=== PATIENT | female | born 1940 ===

== ENCOUNTER 2017-02-15 11:50 | Emergency (ER) | payer OTHER ==
--- NOTE | 2017-02-15 13:11 | ED PDOC ---
HPI: Eye Injury/Pain Time Seen by Provider: 02/15/17 12:09 Chief Complaint (Nursing): Eye Problem Chief Complaint (Provider): right eye redness History Per: Patient History/Exam Limitations: no limitations Onset/Duration Of Symptoms: Days (x2 weeks) Current Symptoms Are (Timing): Still Present Injury To Eye?: No Severity: Mild Wears Contact Lens?: No Associated Symptoms: denies: Pain, Decreased Vision Additional Complaint(s): Patient is a 76 year old female presenting to the ED complaining of redness to the right eye x2 weeks. Redness is associated with tearing and inability to move eye laterally. Patient reports pain surrounding the eye, but no pain to the eye. Denies visual changes, headache, weakness, numbness, vomiting, or contact lens use. Of note: Patient had an unspecified surgery on her right eye. PMD: Yamileth Taylor Past Medical History Reviewed: Historical Data, Nursing Documentation, Vital Signs Vital Signs: Last Vital Signs Temp 97.5 F L 02/15/17 12:05 Pulse 77 02/15/17 12:05 Resp 18 02/15/17 12:05 BP 149/76 02/15/17 12:05 Pulse Ox 96 02/15/17 12:05 - Medical History PMH: Arthritis, CAD, HTN, Hypercholesterolemia, Hypothyroidism - Family History Family History: States: No Known Family Hx - Allergies Allergies/Adverse Reactions: Allergies Allergy/AdvReac Type Severity Reaction Status Date / Time No Known Allergies Allergy Verified 02/15/17 12:38 Review of Systems ROS Statement: Except As Marked, All Systems Reviewed And Found Negative Constitutional: Negative for: Fever Eyes: Positive for: Redness. Negative for: Pain, Vision Change Gastrointestinal: Negative for: Vomiting Neurological: Negative for: Weakness, Numbness, Headache Physical Exam - Reviewed Nursing Documentation Reviewed: Yes Vital Signs Reviewed: Yes - Physical Exam Appears: Positive for: Well, Non-toxic, No Acute Distress Head Exam: Positive for: ATRAUMATIC, NORMAL INSPECTION, NORMOCEPHALIC Skin: Positive for: Normal Color, Warm, DRY Eye Exam: Positive for: PERRL, Conjunctival injection (right). Negative for: EOMI (+eOMI not intact- upward and downward gaze intact -lateral and medial gaze not intact) Cardiovascular/Chest: Positive for: Regular Rate, Rhythm. Negative for: Gallop , Murmur Respiratory: Positive for: Normal Breath Sounds. Negative for: Accessory Muscle Use, Rhonchi, Respiratory Distress Extremity: Positive for: Normal ROM Neurologic/Psych: Positive for: Alert, Oriented - Laboratory Results Result Diagrams: 02/15/17 13:04 02/15/17 13:04 - ECG O2 Sat by Pulse Oximetry: 96 (RA) Pulse Ox Interpretation: Normal - Progress ED Course And Treament: CTA head: IMPRESSION: Mkopvn-ca-[id number] enlarged right superior ophthalmic vein noted of uncertain etiology. Prominent veins seen adjacent to the right cavernous sinus. The possibility of acute pathology at the right cavernous sinus such as thrombosis or carotid cavernous fistula should be excluded. Moderate diffuse atherosclerotic disease without CTA evidence of occlusion or significant stenosis. Mild mucosal thickening in the left sphenoid sinus. CT orbits: IMPRESSION: Asymmetrical enlargement of the right superior ophthalmic vein noted. Otherwise no CT evidence of acute pathology in the orbits. Asymmetrical enlargement of the right cavernous sinus noted. MRI brain: 1. There is right proptosis. There is asymmetric enlargement of the right ophthalmic vein measuring 4-5 mm in diameter. 2. 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 Conventional angiography is recommended. 3. There is irregularity of the distal vertebral arteries, consistent with atherosclerosis. Mild stenoses are visualized of the distal vertebral arteries. 4. There are stenoses of the bilateral cavernous internal carotid arteries. The degree of stenosis of the cavernous right internal carotid artery is approximately 65%. There is approximately 50% stenosis of the cavernous left internal carotid artery. 5. Mild stenosis is visualized of the proximal basilar artery. The degree of stenosis is approximately 50%. Dr. Stubbs discussed case with Dr. Perales who recommends speaking with a vascular neurosurgeon from [facility] and states this does not need emergent intervention. Call placed to [facility] transfer center. Case d/w Dr. Bruce, neurosurgeon, who recommends f/u transfer to [place] [facility] and Dr. Constantino Pressley will be accepting physician Case d/w Ciera LENZ. MRI and CT results transferred with patient. Plan and results discussed in detail with patient and patient's son Mehdi and agree with plan. Consent for transfer signed. Medical Decision Making Medical Decision Making: Time: 12:10 Impression: 76 y/o female without EOMI intact Plan: CT Angio Head CT Orbits/Facials CMP CBC Scribe Attestation: Documented by Lasha Allison acting as a scribe for NADINE Jenkins MD Scribe Attestation: All medical record entries made by the Scribe were at my direction and personally dictated by me. I have reviewed the chart and agree that the record accurately reflects my personal performance of the history, physical exam, medical decision making, and the department course for this patient. I have also personally directed, reviewed, and agree with the discharge instructions and disposition Disposition - Clinical Impression Clinical Impression: External ophthalmoplegia - Patient ED Disposition Is Patient to be Admitted: Transfer of Care - Disposition Disposition: Other Institution ([place]) Disposition Time: 21:32 Condition: STABLE
[2017-02-15 13:26] LABS: ALB/GLOB RATIO 1.2 (1.0-2.1); ALKALINE PHOSPHATASE 118 U/L (38-126); ALT/SGPT 28 U/L (9-52); AST/SGOT 37 U/L (14-36); BILIRUBIN,TOTAL 0.5 mg/dl (0.2-1.3); BLOOD UREA NITROGEN 22 mg/dl (7-17); CALCIUM 9.4 mg/dL (8.4-10.2); CARBON DIOXIDE 27 mmol/L (22-30); CHLORIDE 103 mmol/L (98-107); GFR AFRICAN-AMERICAN > 60; GLUCOSE,RANDOM 129 mg/dL (65-105); POTASSIUM 4.4 MMOL/L (3.6-5.0); SODIUM 146 mmol/l (132-148); TOTAL PROTEIN 8.2 G/DL (6.3-8.2)
[2017-02-15 13:37] LABS: BASO % 0.3 % (0.0-2.0); EOS # 0.1 K/uL (0.0-0.7); EOS % 0.9 % (0.0-4.0); LYMPH # 2.8 K/uL (1.0-4.3); LYMPH % 28.3 % (20.0-40.0); MEAN CELL VOLUME 87.6 fl (81.0-99.0); MEAN CORPUSCULAR HEMOGLOBIN 29.1 pg (27.0-31.0); MEAN CORPUSCULAR HGB CONC 33.2 g/dL (33.0-37.0); MEAN PLATELET VOLUME 7.6 fl (7.2-11.7); MONO # 0.8 K/uL (0.0-0.8); MONO % 7.8 % (0.0-10.0); NEUT # 6.1 K/uL (1.8-7.0); NEUT % 62.7 % (50.0-75.0); NRBC % 0.1 % (0.0-0.0); RED CELL DISTRIBUTION WIDTH 12.6 % (11.5-14.5); WHITE BLOOD COUNT 9.8 K/uL (4.8-10.8)
[2017-02-15] MEDS ORDERED: Iodixanol 320 MG/ML 100 ML BOTTLE IV ONE (14:01)
[2017-02-15] MEDS ORDERED: Sodium Chloride 0.9% 50 ML IV ONE (14:01)
--- NOTE | 2017-02-15 16:05 | CT ---
PROCEDURE: CT Angiography of the Brain. HISTORY: R eye limited EOM COMPARISON: None available. TECHNIQUE: CT angiography of the intracranial arteries was performed. Coronal and sagittal maximum intensity projection reformated images were generated. This CT exam was performed using one or more of the following dose reduction techniques: Automated exposure control, adjustment of the mA and/or kV according to patient size, and/or use of iterative reconstruction technique. FINDINGS: INTERNAL CEREBRAL ARTERIES: Foci of atherosclerotic calcifications seen at the distal portion of both internal carotid arteries. . The skull base, petrous, cavernous and supraclinoid segments are bilaterally widely patient. ANTERIOR CEREBRAL ARTERIES: Unremarkable. A1 and A2 segments are widely patent. Smaller distal branches unremarkable, as visualized. MIDDLE CEREBRAL ARTERIES: Mild diffuse irregularity and foci of calcification at the proximal portion of both middle cerebral arteries noted suggestive of moderate atherosclerotic disease. . M1 and M2 segments are widely patent. Perisylvian branches grossly symmetric. POSTERIOR CIRCULATION: Basilar Artery: Unremarkable. Distal Vertebral Arteries: Atherosclerotic disease is also noted in the distal vertebral arteries right more than left. The distal right vertebral artery is smaller than the left. Posterior Cerebral Arteries: Unremarkable. Posterior Inferior Cerebellar Arteries: Unremarkable. ANEURYSM/ VASCULAR MALFORMATIONS: No evidence of sizable aneurysm OTHER FINDINGS: There is mild to moderate enlargement of the right superior oval thymic vein noted. There are prominent veins at the medial aspect of the right posterior fossa and adjacent to the right cavernous sinus noted. IMPRESSION: Qgquqc-[id number] enlarged right superior ophthalmic vein noted of uncertain etiology. Prominent veins seen adjacent to the right cavernous sinus. The possibility of acute pathology at the right cavernous sinus such as thrombosis or carotid cavernous fistula should be excluded. Moderate diffuse atherosclerotic disease without CTA evidence of occlusion or significant stenosis. Mild mucosal thickening in the left sphenoid sinus.
--- NOTE | 2017-02-15 16:20 | CT ---
PROCEDURE: CT ORBITS WITH CONTRAST. HISTORY: R eye limited EMO COMPARISON: None available. TECHNIQUE: Following administration of intravenous iodinated contrast, axial CT images of the orbits were obtained. Coronal and sagittal reformats were generated. Intravenous contrast dose: 95 mL of Visipaque 320 (was injected for CTA of the head and CT of the orbits) Radiation dose: Total exam DLP = 713.09 mGy-cm. This CT exam was performed using one or more of the following dose reduction techniques: Automated exposure control, adjustment of the mA and/or kV according to patient size, and/or use of iterative reconstruction technique. FINDINGS: RIGHT ORBIT: RIGHT BONY ORBIT: Normal. RIGHT INTRAORBITAL STRUCTURES: Globe: Normal. Extraocular muscles: Normal. Post septal space: There is a asymmetrical enlargement of the right superior ophthalmic vein compared to the left. Optic Nerve: Normal. Lacrimal Apparatus: Normal. RIGHT PRESEPTAL SOFT TISSUES: Normal. LEFT ORBIT: LEFT BONY ORBIT: Normal. LEFT INTRAORBITAL STRUCTURES: Globe: Normal. Extraocular muscles: Normal. Post septal space: Normal. Optic Nerve: Normal. Lacrimal Apparatus: Normal. LEFT PRESEPTAL SOFT TISSUES: Normal. OTHER: Suspicious for enlargement of the right cavernous sinus versus enlargement of adjacent collateral veins. IMPRESSION: Asymmetrical enlargement of the right superior ophthalmic vein noted. Otherwise no CT evidence of acute pathology in the orbits. Asymmetrical enlargement of the right cavernous sinus noted. Further assessment may be obtained by enhanced MRI if there is no contraindication .
[2017-02-15] MEDS ORDERED: Gadodiamide 287 MG/ML VIAL (15ML) IV ONE (16:48)
[2017-02-15 21:40] VITALS: TEMP 98.3
[2017-02-15 22:39] VITALS: BP 152/82; PULSE 74; RESP 16; O2SAT 99
--- NOTE | 2017-02-16 14:02 | MRI ---
PROCEDURE: MRI BRAIN WITH AND WITHOUT CONTRAST HISTORY: enlarged ophthalmic vein COMPARISON: Comparison is made to the previous CT of the head dated 07/12/2013 CT angiogram of the head and CT of the orbits dated 02/15/2017. TECHNIQUE: Multiplanar, multisequence MR images of the brain were obtained with and without intravenous contrast enhancement. FINDINGS: HEMORRHAGE: None DWI: No evidence of an acute or early subacute infarction. BRAIN PARENCHYMA: No mass,mass effect or edema. Mild atrophy is noted. Moderate periventricular and subcortical white matter changes are also noted suggestive but nonspecific for chronic microvascular ischemic disease. There is asymmetrical enlargement of the right cavernous sinus comparing to the left. There are collateral veins seen adjacent to the right cavernous sinus. ENHANCEMENT: No abnormal intracranial enhancement. VENTRICLES: Unremarkable. No hydrocephalus. CRANIUM: Unremarkable. ORBITS: No evidence of mass lesion in the visualized portion of the orbits. Again seen is enlargement of the right superior over thymic vein. Mild right proptosis noted. PARANASAL SINUSES/MASTOIDS: Mild sinuses mucosal thickening is noted. VASCULAR SYSTEM: Skull base flow voids intact. OTHER FINDINGS: None . IMPRESSION: Asymmetrical enlargement of the right cavernous sinus compared to the left. . Collateral veins seen adjacent to the right cavernous sinus. [id number] enlargement of the right superior ophthalmic vein. The possibility of acute/ subacute pathology at the right cavernous sinus such as carotid cavernous fistula should be considered. Mild atrophy. Moderate white matter changes suggestive but nonspecific for chronic microvascular ischemic disease. Mild right proptosis. Preliminary report was submitted by [facility] contains concordant findings.
--- NOTE | 2017-02-16 14:10 | MRI ---
PROCEDURE: Magnetic Resonance Angiography Brain HISTORY: enlarged ophthalmic vein COMPARISON: Comparison is made to the previous CTA of the head dated 02/15/2017 TECHNIQUE: 3D time of flight MR angiography of the intracranial arteries was performed. Rotating maximum intensity projection images were generated. FINDINGS: INTERNAL CEREBRAL ARTERIES: Diffuse irregularity in the distal internal carotid arteries suggestive of moderate atherosclerotic disease. There is tshf-oh-[id number] approximately 65 percent stenosis at the cavernous right internal carotid artery and approximately 50 percent stenosis at the cavernous left carotid artery. ANTERIOR CEREBRAL ARTERIES: Unremarkable. A1 and A2 segments are widely patent. Smaller distal branches unremarkable, as visualized. MIDDLE CEREBRAL ARTERIES: Diffuse irregularity seen likely due to atherosclerotic disease. . M1 and M2 segments are widely patent. Perisylvian branches grossly symmetric. POSTERIOR CIRCULATION: Basilar Artery: Mild stenosis visualize at the proximal basilar artery. Distal Vertebral Arteries: There is irregularity at the distal vertebral arteries. Mild stenosis are visualized on the distal vertebral arteries. Posterior Cerebral Arteries: Unremarkable. Posterior Inferior Cerebellar Arteries: Unremarkable. ANEURYSM/ VASCULAR MALFORMATIONS: None. OTHER FINDINGS: There is mild right proptosis. There is asymmetric enlargement of the right of the thymic faint. 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 IMPRESSION: Moderate diffuse irregularity consistent with atherosclerotic disease. Approximately 65% stenosis at the cavernous right internal carotid artery and 50% stenosis at the cavernous left internal carotid artery. Mild to moderate enlargement of the right ophthalmic vein and collateral veins seen adjacent to the right cavernous sinus concerning for possible carotid cavernous fistula. Conventional angiography is recommended for further assessment. Mild stenosis in the proximal basilar arteries and mild stenosis in the distal vertebral arteries. Preliminary report was submitted by [facility].
== END 2017-02-15 22:38 | disposition home or self-care (01) ==
LOC: H.ER 11:50
DX: H49 Paralytic strabismus (principal); E03.9 Hypothyroidism, unspecified; E78.00 Pure hypercholesterolemia, unspecified; I10 Essential (primary) hypertension; I25.10 Atherosclerotic heart disease of native coronary artery without angina pectoris

== ENCOUNTER 2017-12-01 17:59 | Inpatient (IN) | payer MEDICARE, OTHER ==
[2017-12-01] MEDS ORDERED: Sodium Chloride 0.9% 1,000 ML IV STA ×2 (19:25→20:48)
--- NOTE | 2017-12-01 20:18 | ED PDOC ---
HPI: General Adult Time Seen by Provider: 12/01/17 19:09 Chief Complaint (Nursing): Flu-like Symptoms Chief Complaint (Provider): Flu-like Symptoms History Per: Patient History/Exam Limitations: no limitations Additional Complaint(s): Omega is a 77 year old female who presents to the emergency department via EMS complaining of fever, sore throat, dizziness, headache and abdominal pain x 3 days. Patient reports 1 episode of nausea and vomiting. Patient reports feeling dizzy and lightheadedness. Patient denies any recent travel or sick contacts. Patient states non-thunderclap, non-radiating headache. Denies urinary symptoms. Patient states she did get flu shot this year. PMD: Blaine Atkinson Past Medical History Reviewed: Historical Data, Nursing Documentation, Vital Signs Vital Signs: Last Vital Signs Temp 101.7 F H 12/01/17 21:47 Pulse 102 H 12/01/17 18:07 Resp 16 12/01/17 18:07 BP 134/77 12/01/17 18:07 Pulse Ox 100 12/01/17 22:18 - Medical History PMH: Arthritis, CAD, HTN, Hypercholesterolemia, Hypothyroidism - Surgical History Surgical History: No Surg Hx - Family History Family History: States: Unknown Family Hx - Social History Current smoker - smoking cessation education provided: No Alcohol: None Drugs: Denies - Allergies Allergies/Adverse Reactions: Allergies Allergy/AdvReac Type Severity Reaction Status Date / Time No Known Allergies Allergy Verified 02/15/17 12:38 Review of Systems ROS Statement: Except As Marked, All Systems Reviewed And Found Negative Constitutional: Positive for: Fever ENT: Positive for: Throat Pain Gastrointestinal: Positive for: Nausea, Vomiting Genitourinary Female: Negative for: Dysuria, Hematuria Neurological: Positive for: Headache (non-thunderclap,non-radaiting), Dizziness Physical Exam - Reviewed Nursing Documentation Reviewed: Yes Vital Signs Reviewed: Yes - Physical Exam Appears: Positive for: Non-toxic Head Exam: Positive for: ATRAUMATIC, NORMAL INSPECTION, NORMOCEPHALIC Skin: Positive for: Normal Color, Warm, Dry Eye Exam: Positive for: Normal appearance, EOMI, PERRL ENT: Positive for: Normal ENT Inspection Neck: Positive for: Normal Cardiovascular/Chest: Positive for: Regular Rate, Rhythm Respiratory: Positive for: Normal Breath Sounds. Negative for: Respiratory Distress Gastrointestinal/Abdominal: Positive for: Soft, Tenderness (Diffuse mild tenderness). Negative for: Guarding Back: Positive for: Normal Inspection Extremity: Positive for: Normal ROM. Negative for: Deformity Neurologic/Psych: Positive for: Alert, Oriented (x 3). Negative for: Motor/ Sensory Deficits - Laboratory Results Result Diagrams: 12/01/17 20:05 12/01/17 19:40 - ECG O2 Sat by Pulse Oximetry: 100 (RA) Pulse Ox Interpretation: Normal Medical Decision Making Medical Decision Making: Time: 19:24 Impression(s): Influenza vs. Gastroenteritis, Viral Illness Plan: - Venous Blood Gas Shock Panel - CT Abdomen and Pelvis - EKG - BMP - TSH - Troponin I - CBC - Sodium Chloride 0.9% 1,000 ml IV 500 mls/he - Reglan 10 mg IVPB Once - Toradol 15 mg IVP STAT - Influenza A B Stat Time: 21:42 CT Abdomen and Pelvis with IV Contrast FINDINGS: Limitations: Motion artifact - mild. Lower thorax: Minimal atelectasis/scarring. RIGHT lower lobe calcified granuloma. Small hiatal hernia. ABDOMEN: Liver: Few probable hepatic cysts. Gallbladder and bile ducts: Cholecystectomy. No significant ductal dilation. Pancreas: No ductal dilation. No mass. Spleen: No splenomegaly. Adrenals: No mass. Kidneys and ureters: Few probable renal cysts. No hydronephrosis. Stomach and bowel: Segmental areas of mild mural thickening vs underdistention of distal transverse, descending, sigmoid colon. No associated inflammatory stranding. No obstruction. Appendix: Normal caliber. No inflammation. PELVIS: Bladder: Unremarkable. Reproductive: Unremarkable as visualized. ABDOMEN and PELVIS: Intraperitoneal space: No significant fluid collection. No free air. Bones/joints: Degenerative changes and scoliosis of spine. No acute fracture. Soft tissues: Unremarkable. Vasculature: Moderate atherosclerotic disease. No aneurysm. Lymph nodes: No pathologically enlarged lymph nodes. IMPRESSION: 1. Mild colitis versus underdistention. Clinical correlation is needed. 2. Incidental/non-acute findings are described above. 10PM Patient has signs of PNA on CXR as well as colitis on CT. Will admit for sepsis , colitis, and PNA. Dr. Carranza aware. Scribe Attestation: Documented by Jorge Tripathi, acting as a scribe for Trey Bradley MD. Provider Scribe Attestation: All medical record entries made by the Scribe were at my direction and personally dictated by me. I have reviewed the chart and agree that the record accurately reflects my personal performance of the history, physical exam, medical decision making, and the department course for this patient. I have also personally directed, reviewed, and agree with the discharge instructions and disposition. Disposition - Clinical Impression Clinical Impression: Pneumonia, Colitis, Sepsis - Disposition Disposition Time: 22:00 Condition: SERIOUS
[2017-12-01 20:22] LABS: BASO # 0.1 K/uL (0.0-0.2); BASO % 0.4 % (0.0-2.0); HEMOGLOBIN 13.1 g/dL (12.0-16.0); LYMPH # 1.1 K/uL (1.0-4.3); LYMPH % 5.4 % (20.0-40.0); MEAN CELL VOLUME 85.2 fl (81.0-99.0); MEAN CORPUSCULAR HEMOGLOBIN 27.8 pg (27.0-31.0); MEAN CORPUSCULAR HGB CONC 32.6 g/dL (33.0-37.0); MEAN PLATELET VOLUME 7.5 fl (7.2-11.7); MONO # 0.6 K/uL (0.0-0.8); MONO % 3.2 % (0.0-10.0); NEUT # 17.7 K/uL (1.8-7.0); PLATELET COUNT 335 K/uL (130-400); RBC 4.73 Mil/uL (3.80-5.20); WHITE BLOOD COUNT 19.5 K/uL (4.8-10.8)
[2017-12-01 20:30] LABS: BLOOD UREA NITROGEN 16 mg/dl (7-17); GFR AFRICAN-AMERICAN > 60; GFR NON-AFRICAN AMERICAN > 60
[2017-12-01] MEDS ORDERED: Sodium Chloride 0.9% 50 ML IV ONE (21:06)
[2017-12-01] MEDS ORDERED: Iohexol 300 100 ML IJ ONE (21:06)
[2017-12-01 21:17] LABS: BANDS 2 % (0-2); LYMPHOCYTE 8 % (20-50); MONOCYTE 5 % (0-10); NEUTROPHIL 85 % (42-75); PLATELET ESTIMATE NORMAL (NORMAL); TOTAL CELLS COUNTED 100
[2017-12-01 21:18] LABS: HYPOCHROMIC SLIGHT; LARGE PLATELETS PRESENT
[2017-12-01 21:20] LABS: VENOUS BLOOD GAS BASE EXCESS 1.2 mmol/L (0.0-2.0); VENOUS BLOOD GAS PCO2 41 mmHg (40-60); VENOUS BLOOD GAS PO2 40 mm/Hg (30-55); VENOUS BLOOD PH 7.41 (7.32-7.43)
--- NOTE | 2017-12-01 21:42 | CT ---
EXAM: CT Abdomen and Pelvis With Intravenous Contrast CLINICAL HISTORY: 77 years old, female; Pain; Abdominal pain; Localized; Lower; Additional info: Lower abdominal pain, vomiting, diarrhea TECHNIQUE: Axial computed tomography images of the abdomen and pelvis with intravenous contrast. All CT scans at this facility use one or more dose reduction techniques, viz.: automated exposure control; ma/kV adjustment per patient size (including targeted exams where dose is matched to indication; i.e. head); or iterative reconstruction technique. Coronal and sagittal reformatted images were created and reviewed. CONTRAST: 80 mL of [id number] administered intravenously. COMPARISON: No relevant prior studies available. FINDINGS: Limitations: Motion artifact - mild. Lower thorax: Minimal atelectasis/scarring. RIGHT lower lobe calcified granuloma. Small hiatal hernia. ABDOMEN: Liver: Few probable hepatic cysts. Gallbladder and bile ducts: Cholecystectomy. No significant ductal dilation. Pancreas: No ductal dilation. No mass. Spleen: No splenomegaly. Adrenals: No mass. Kidneys and ureters: Few probable renal cysts. No hydronephrosis. Stomach and bowel: Segmental areas of mild mural thickening vs underdistention of distal transverse, descending, sigmoid colon. No associated inflammatory stranding. No obstruction. Appendix: Normal caliber. No inflammation. PELVIS: Bladder: Unremarkable. Reproductive: Unremarkable as visualized. ABDOMEN and PELVIS: Intraperitoneal space: No significant fluid collection. No free air. Bones/joints: Degenerative changes and scoliosis of spine. No acute fracture. Soft tissues: Unremarkable. Vasculature: Moderate atherosclerotic disease. No aneurysm. Lymph nodes: No pathologically enlarged lymph nodes. IMPRESSION: 1. Mild colitis versus underdistention. Clinical correlation is needed. 2. Incidental/non-acute findings are described above.
[2017-12-01] MEDS ORDERED: metroNIDAZOLE 500mg/100ml NS 100 ML IVPB STA (21:49)
[2017-12-01] MEDS ORDERED: Ciprofloxacin 400mg/200ml D5W 400 MG/200 ML BAG IVPB STA (21:49)
[2017-12-01] MEDS ORDERED: Cefepime 2 GM in Sodium Chloride 0.9% 100 ML IVPB STA (21:53)
[2017-12-01 23:24] LABS: VENOUS BLOOD GAS PCO2 82 mmHg (40-60); VENOUS BLOOD GAS PO2 78 mm/Hg (30-55); VENOUS BLOOD PH 6.92 (7.32-7.43)
[2017-12-01 23:33] LABS: ABG ALLEN TEST YES; ARTERIAL BLOOD GAS HCO3 23.8 mmol/L (21-28); ARTERIAL BLOOD GAS O2 SAT 100.5 % (95-98); ARTERIAL BLOOD GAS PCO2 36 mm/Hg (35-45); ARTERIAL BLOOD GAS PH 7.41 (7.35-7.45); ARTERIAL BLOOD GAS PO2 92 mm/Hg (80-100); ARTERIAL BLOOD GAS TCO2 23.9 mmol/L (22-28)
[2017-12-02] MEDS: Levothyroxine 75 MCG TAB PO SCH (06:57)
--- NOTE | 2017-12-02 08:49 | CP.PCM.HP ---
<Galilea Weinberg - Last Filed: 12/02/17 11:16> History of Present Illness - History of Present Illness History of Present Illness: 77 YO F was admitted in ER after presenting with abdominal pain x 3 days, dizziness and headache, along with a subjective fever. She also had two episodes of billious non bloody vomitus. Denies any falls or head trauma. Headache is 5/10 non radiating. Patient denies any pain during urination or increase in frequency of urination. Today patient denies any abdominal pain PMD: Blaine spangler ( Yamileth Taylor) PMH: CAD, DM 2, Osteoporosis, HTN, Hypothyroidism PSHx: thyroidectomy, cholecystectomy SH: Denies smoking and alcohol consumption Allergy: NKDA Present on Admission - Present on Admission Any Indicators Present on Admission: No Past Patient History - Past Medical History & Family History Past Medical History?: Yes - Past Social History Smoking Status: Never Smoked - CARDIAC Hx Hypercholesterolemia: Yes Hx Hypertension: Yes - PULMONARY Hx Asthma: Yes - ENDOCRINE/METABOLIC Hx Diabetes Mellitus Type 2: Yes Hx Hypothyroidism: Yes - HEMATOLOGICAL/ONCOLOGICAL Hx AIDS: No Hx Human Immunodeficiency Virus (HIV): No - MUSCULOSKELETAL/RHEUMATOLOGICAL Hx Musculoskeletal Disorders: Yes Hx Arthritis: Yes Hx Falls: No Hx Osteoporosis: Yes - PSYCHIATRIC Hx Substance Use: No - SURGICAL HISTORY Hx Surgeries: Yes Hx Cholecystectomy: Yes Hx Eye Surgery: Yes (r eye) Hx Thyroidectomy: Yes (at 18 years old) - ANESTHESIA Hx Anesthesia: Yes Hx Anesthesia Reactions: No Hx Malignant Hyperthermia: No Has any member of the family had a problem w/ anesthesia?: No Meds Allergies/Adverse Reactions: Allergies Allergy/AdvReac Type Severity Reaction Status Date / Time No Known Allergies Allergy Verified 12/01/17 23:09 Physical Exam - Constitutional Appears: No Acute Distress - Head Exam Head Exam: ATRAUMATIC, NORMAL INSPECTION - Eye Exam Eye Exam: Normal appearance - Respiratory Exam Respiratory Exam: NORMAL BREATHING PATTERN. absent: Wheezes, Respiratory Distress - Cardiovascular Exam Cardiovascular Exam: REGULAR RHYTHM, +S1, +S2 - GI/Abdominal Exam GI & Abdominal Exam: Soft Additional comments: difuse mild tenderness - Neurological Exam Neurological exam: Alert, CN II-XII Intact, Oriented x3 - Skin Skin Exam: Normal Color, Warm Results - Vital Signs Recent Vital Signs: Last Vital Signs Temp 97.7 F 12/02/17 08:00 Pulse 79 12/02/17 08:00 Resp 18 12/02/17 08:00 BP 167/68 H 12/02/17 08:00 Pulse Ox 99 12/02/17 08:00 - Labs Result Diagrams: 12/02/17 08:50 12/02/17 08:50 Labs: Laboratory Results - last 24 hr 12/01/17 12/01/17 12/01/17 19:40 19:40 20:05 WBC 19.5 H D RBC 4.73 Hgb 13.1 Hct 40.3 MCV 85.2 D MCH 27.8 MCHC 32.6 L RDW 13.0 Plt Count 335 D MPV 7.5 Neut % (Auto) 91.0 H Lymph % (Auto) 5.4 L [place] % (Auto) 3.2 Eos % (Auto) 0.0 Baso % (Auto) 0.4 Neut # (Auto) 17.7 H Lymph # (Auto) 1.1 Jerome # (Auto) 0.6 Eos # (Auto) 0.0 Baso # (Auto) 0.1 Neutrophils % (Manual) 85 H Band Neutrophils % 2 Lymphocytes % (Manual) 8 L Monocytes % (Manual) 5 Platelet Estimate Normal Large Platelets Present Hypochromasia (manual) Slight pCO2 pO2 HCO3 ABG pH ABG Total CO2 ABG O2 Saturation ABG Base Excess Vinny Test ABG Potassium VBG pH VBG pCO2 VBG HCO3 VBG Total CO2 VBG O2 Sat (Calc) VBG Base Excess VBG Potassium A-a O2 Difference Glucose Lactate FiO2 Crit Value Called To Crit Value Called By Crit Value Read Back Blood Gas Notified Time Sodium 138 Potassium 3.5 L Chloride 99 Carbon Dioxide 25 Anion Gap 18 BUN 16 Creatinine 0.7 Est GFR ( Amer) > 60 Est GFR (Non-Af Amer) > 60 POC Glucose (mg/dL) Random Glucose 156 H Calcium 9.0 Troponin I 0.0130 TSH 3rd Generation 1.26 Arterial Blood Potassium Venous Blood Potassium Influenza Typ A,B (EIA) Negative for flu a/b 12/01/17 12/01/17 12/01/17 21:04 23:15 23:27 WBC RBC Hgb Hct MCV MCH MCHC RDW Plt Count MPV Neut % (Auto) Lymph % (Auto) Jerome % (Auto) Eos % (Auto) Baso % (Auto) Neut # (Auto) Lymph # (Auto) [place] # (Auto) Eos # (Auto) Baso # (Auto) Neutrophils % (Manual) Band Neutrophils % Lymphocytes % (Manual) Monocytes % (Manual) Platelet Estimate Large Platelets Hypochromasia (manual) pCO2 36 pO2 40 78 H 92 HCO3 23.8 ABG pH 7.41 ABG Total CO2 23.9 ABG O2 Saturation 100.5 H ABG Base Excess -1.4 Vinny Test Yes ABG Potassium 3.0 L VBG pH 7.41 6.92 L* VBG pCO2 41 82 H* VBG HCO3 25.3 11.3 VBG Total CO2 27.3 19.3 L VBG O2 Sat (Calc) 82.8 H 94.8 H VBG Base Excess 1.2 -17.0 L VBG Potassium 3.5 L A-a O2 Difference 13.0 Glucose 153 H 127 H 129 H Lactate 1.7 1.3 0.7 FiO2 21.0 21.0 21.0 Crit Value Called To Jose Angel smalls rn Crit Value Called By Vaughn Crit Value Read Back Y Blood Gas Notified Time 2323 Sodium 136.0 114.0 L* 137.0 Potassium Chloride 99.0 98.0 107.0 Carbon Dioxide Anion Gap BUN Creatinine Est GFR ( Amer) Est GFR (Non-Af Amer) POC Glucose (mg/dL) Random Glucose Calcium Troponin I TSH 3rd Generation Arterial Blood Potassium 3.0 L Venous Blood Potassium 3.5 L Influenza Typ A,B (EIA) 12/02/17 05:51 WBC RBC Hgb Hct MCV MCH MCHC RDW Plt Count MPV Neut % (Auto) Lymph % (Auto) [place] % (Auto) Eos % (Auto) Baso % (Auto) Neut # (Auto) Lymph # (Auto) [place] # (Auto) Eos # (Auto) Baso # (Auto) Neutrophils % (Manual) Band Neutrophils % Lymphocytes % (Manual) Monocytes % (Manual) Platelet Estimate Large Platelets Hypochromasia (manual) pCO2 pO2 HCO3 ABG pH ABG Total CO2 ABG O2 Saturation ABG Base Excess Vinny Test ABG Potassium VBG pH VBG pCO2 VBG HCO3 VBG Total CO2 VBG O2 Sat (Calc) VBG Base Excess VBG Potassium A-a O2 Difference Glucose Lactate FiO2 Crit Value Called To Crit Value Called By Crit Value Read Back Blood Gas Notified Time Sodium Potassium Chloride Carbon Dioxide Anion Gap BUN Creatinine Est GFR ( Amer) Est GFR (Non-Af Amer) POC Glucose (mg/dL) 95 Random Glucose Calcium Troponin I TSH 3rd Generation Arterial Blood Potassium Venous Blood Potassium Influenza Typ A,B (EIA) Assessment & Plan - Assessment and Plan (Free Text) Assessment: 77 YO F which is admitted for Sepsis w/ possible pneumonia and mild colitis CT shows : Mild collitis vs underdistension: Spoke with GI, no antibiotic treatment indicated for possible mild collitis currently - Continue IV hydration - GI consult appreciated: - Continue IV antibiotics for Community acquired pneumonia - WBC trending down. Currently afebrile - DM2: continue home medications - F/U with X ray results - F/U with blood culture - F/U with urine culture - DVE prophylaxis : Lovenox <Cleve Carranza - Last Filed: 12/06/17 16:27> Results - Vital Signs Recent Vital Signs: Last Vital Signs Temp 98.1 F 12/05/17 08:40 Pulse 76 12/05/17 10:27 Resp 18 12/05/17 08:40 BP 151/74 H 12/05/17 10:27 Pulse Ox 93 L 12/05/17 08:40 - Labs Result Diagrams: 12/05/17 06:30 12/05/17 06:30 Assessment & Plan - Assessment and Plan (Free Text) Assessment: Patient was personally seen and examined by me in rounds with residents. Available labs and diagnostic data reviewed. Case, Patient's condition and management plan discussed with residents in rounds. Agree with resident's documentation. Plan: As ordered. Cleve Carranza MD
[2017-12-02] MEDS ORDERED: CHOLECALCIFEROL 5000 UNIT PO SCH (09:00)
[2017-12-02] MEDS ORDERED: Patient's Own Med (Calcium Carbonate/Vitamin D3 [Calcium 600 + Vit D Tablet] 1 TAB) PO SCH (09:00)
[2017-12-02 09:01] LABS: HEMOGLOBIN 12.9 g/dL (12.0-16.0); MEAN CELL VOLUME 85.1 fl (81.0-99.0); MEAN CORPUSCULAR HEMOGLOBIN 28.4 pg (27.0-31.0); MEAN CORPUSCULAR HGB CONC 33.4 g/dL (33.0-37.0); RBC 4.54 Mil/uL (3.80-5.20)
[2017-12-02] MEDS: Calcium-Vit D 500 mg-200 Units Tab UD PO SCH (09:09)
[2017-12-02] MEDS: Enoxaparin 40 mg Syringe SC SCH (09:11)
[2017-12-02] MEDS: Cholecalciferol 1,000 INTLU TAB PO SCH (09:11)
--- NOTE | 2017-12-02 09:18 | CP.PCM.CON ---
<Moody Belle - Last Filed: 12/02/17 10:55> History of Present Illness - History of Present Illness History of Present Illness: Initial PGY4 GI Consult Note Reason for Consultation: Jil Castellon is a 77F w/ hx of CAD, DM. OA. osteoporosis, HTN, HL, hypothyroidism who presented to the ER with complaints of malaise, fever, dizziness, sore throat, nausea, vomiting, and abd pain. She states that her symptoms started 3 days ago. She started to have generalized body aches with fever and viral symptoms. She notes that she also had RLQ pain which was intermittent and colicky. It has not progressed. She notes that she also experienced x2 episodes of bilious non-bloody emesis. She notes that her last episode was yesterday. She states that she has also had a decrease in appetite. She denies any change in her bowel habits and denies any diarrhea. She denies any sick contacts or consuming anything different from her normal diet. She denies any previous colonoscopy or endoscopy. Today she no longer has any abd pain and denies any nausea. PMHx: CAD, DM. OA. osteoporosis, HTN, HL, hypothyroidism PSHx: thyroidectomy, cholecystecomy Social hx denies any smoking, alcohol consumption or illicit drug use ENdo hx: denies Past Patient History - Past Medical History & Family History Past Medical History?: Yes - Past Social History Smoking Status: Never Smoked - CARDIAC Hx Hypercholesterolemia: Yes Hx Hypertension: Yes - PULMONARY Hx Asthma: Yes - ENDOCRINE/METABOLIC Hx Diabetes Mellitus Type 2: Yes Hx Hypothyroidism: Yes - HEMATOLOGICAL/ONCOLOGICAL Hx AIDS: No Hx Human Immunodeficiency Virus (HIV): No - MUSCULOSKELETAL/RHEUMATOLOGICAL Hx Musculoskeletal Disorders: Yes Hx Arthritis: Yes Hx Falls: No Hx Osteoporosis: Yes - PSYCHIATRIC Hx Substance Use: No - SURGICAL HISTORY Hx Surgeries: Yes Hx Cholecystectomy: Yes Hx Eye Surgery: Yes (r eye) Hx Thyroidectomy: Yes (at 18 years old) - ANESTHESIA Hx Anesthesia: Yes Hx Anesthesia Reactions: No Hx Malignant Hyperthermia: No Has any member of the family had a problem w/ anesthesia?: No Meds Allergies/Adverse Reactions: Allergies Allergy/AdvReac Type Severity Reaction Status Date / Time No Known Allergies Allergy Verified 12/01/17 23:09 - Medications Medications: Current Medications Amlodipine Besylate (Norvasc) 10 mg PO DAILY [facility] Calcium/Vitamin D (Oyster Shell Calcium/Vitamin D 500 Mg-200 Iu) 1 tab PO DAILY [facility] Cholecalciferol (Vitamin D) 5,000 intlu PO DAILY [facility] Enoxaparin Sodium (Lovenox) 40 mg SC DAILY [facility] PRN Reason: Protocol Levothyroxine Sodium (Synthroid) 75 mcg PO DAILY@0630 [facility] Last Admin: 12/02/17 06:57 Dose: 75 mcg Metformin HCl (Glucophage) 500 mg PO DAILY [facility] Montelukast Sodium (Singulair) 10 mg PO DAILY [facility] Physical Exam - Constitutional Appears: Well, No Acute Distress - Head Exam Head Exam: ATRAUMATIC, NORMOCEPHALIC - Eye Exam Eye Exam: Normal appearance - ENT Exam ENT Exam: Mucous Membranes Moist, Normal Exam - Neck Exam Neck exam: Positive for: Normal Inspection - Respiratory Exam Respiratory Exam: Clear to Auscultation Bilateral, NORMAL BREATHING PATTERN. absent: Rales, Rhonchi, Wheezes, Respiratory Distress - Cardiovascular Exam Cardiovascular Exam: REGULAR RHYTHM, +S1, +S2 - GI/Abdominal Exam GI & Abdominal Exam: Normal Bowel Sounds, Soft. absent: Organomegaly, Rebound, Rigid, Tenderness - Rectal Exam Rectal Exam: NORMAL INSPECTION - Extremities Exam Extremities exam: Negative for: joint swelling, pedal edema - Neurological Exam Neurological exam: Alert, Oriented x3 - Skin Skin Exam: Dry, Intact, Normal Color, Warm Results - Vital Signs Recent Vital Signs: Last Vital Signs Temp 97.7 F 12/02/17 08:00 Pulse 79 12/02/17 08:00 Resp 18 12/02/17 08:00 BP 167/68 H 12/02/17 08:00 Pulse Ox 99 12/02/17 08:00 - Labs Result Diagrams: 12/02/17 08:50 12/02/17 08:50 Labs: Laboratory Results - last 24 hr 12/01/17 12/01/17 12/01/17 19:40 19:40 20:05 WBC 19.5 H D RBC 4.73 Hgb 13.1 Hct 40.3 MCV 85.2 D MCH 27.8 MCHC 32.6 L RDW 13.0 Plt Count 335 D MPV 7.5 Neut % (Auto) 91.0 H Lymph % (Auto) 5.4 L [place] % (Auto) 3.2 Eos % (Auto) 0.0 Baso % (Auto) 0.4 Neut # (Auto) 17.7 H Lymph # (Auto) 1.1 [place] # (Auto) 0.6 Eos # (Auto) 0.0 Baso # (Auto) 0.1 Neutrophils % (Manual) 85 H Band Neutrophils % 2 Lymphocytes % (Manual) 8 L Monocytes % (Manual) 5 Platelet Estimate Normal Large Platelets Present Hypochromasia (manual) Slight pCO2 pO2 HCO3 ABG pH ABG Total CO2 ABG O2 Saturation ABG Base Excess Vinny Test ABG Potassium VBG pH VBG pCO2 VBG HCO3 VBG Total CO2 VBG O2 Sat (Calc) VBG Base Excess VBG Potassium A-a O2 Difference Glucose Lactate FiO2 Crit Value Called To Crit Value Called By Crit Value Read Back Blood Gas Notified Time Sodium 138 Potassium 3.5 L Chloride 99 Carbon Dioxide 25 Anion Gap 18 BUN 16 Creatinine 0.7 Est GFR ( Amer) > 60 Est GFR (Non-Af Amer) > 60 POC Glucose (mg/dL) Random Glucose 156 H Calcium 9.0 Troponin I 0.0130 TSH 3rd Generation 1.26 Arterial Blood Potassium Venous Blood Potassium Influenza Typ A,B (EIA) Negative for flu a/b 12/01/17 12/01/17 12/01/17 21:04 23:15 23:27 WBC RBC Hgb Hct MCV MCH MCHC RDW Plt Count MPV Neut % (Auto) Lymph % (Auto) [place] % (Auto) Eos % (Auto) Baso % (Auto) Neut # (Auto) Lymph # (Auto) [place] # (Auto) Eos # (Auto) Baso # (Auto) Neutrophils % (Manual) Band Neutrophils % Lymphocytes % (Manual) Monocytes % (Manual) Platelet Estimate Large Platelets Hypochromasia (manual) pCO2 36 pO2 40 78 H 92 HCO3 23.8 ABG pH 7.41 ABG Total CO2 23.9 ABG O2 Saturation 100.5 H ABG Base Excess -1.4 Vinny Test Yes ABG Potassium 3.0 L VBG pH 7.41 6.92 L* VBG pCO2 41 82 H* VBG HCO3 25.3 11.3 VBG Total CO2 27.3 19.3 L VBG O2 Sat (Calc) 82.8 H 94.8 H VBG Base Excess 1.2 -17.0 L VBG Potassium 3.5 L A-a O2 Difference 13.0 Glucose 153 H 127 H 129 H Lactate 1.7 1.3 0.7 FiO2 21.0 21.0 21.0 Crit Value Called To Jose Angel smalls rn Crit Value Called By 333 Crit Value Read Back Y Blood Gas Notified Time 2322 Sodium 136.0 114.0 L* 137.0 Potassium Chloride 99.0 98.0 107.0 Carbon Dioxide Anion Gap BUN Creatinine Est GFR ( Amer) Est GFR (Non-Af Amer) POC Glucose (mg/dL) Random Glucose Calcium Troponin I TSH 3rd Generation Arterial Blood Potassium 3.0 L Venous Blood Potassium 3.5 L Influenza Typ A,B (EIA) 12/02/17 05:51 WBC RBC Hgb Hct MCV MCH MCHC RDW Plt Count MPV Neut % (Auto) Lymph % (Auto) [place] % (Auto) Eos % (Auto) Baso % (Auto) Neut # (Auto) Lymph # (Auto) [place] # (Auto) Eos # (Auto) Baso # (Auto) Neutrophils % (Manual) Band Neutrophils % Lymphocytes % (Manual) Monocytes % (Manual) Platelet Estimate Large Platelets Hypochromasia (manual) pCO2 pO2 HCO3 ABG pH ABG Total CO2 ABG O2 Saturation ABG Base Excess Vinny Test ABG Potassium VBG pH VBG pCO2 VBG HCO3 VBG Total CO2 VBG O2 Sat (Calc) VBG Base Excess VBG Potassium A-a O2 Difference Glucose Lactate FiO2 Crit Value Called To Crit Value Called By Crit Value Read Back Blood Gas Notified Time Sodium Potassium Chloride Carbon Dioxide Anion Gap BUN Creatinine Est GFR ( Amer) Est GFR (Non-Af Amer) POC Glucose (mg/dL) 95 Random Glucose Calcium Troponin I TSH 3rd Generation Arterial Blood Potassium Venous Blood Potassium Influenza Typ A,B (EIA) Assessment & Plan - Assessment and Plan (Free Text) Assessment: Omega Castellon is a 77F w/ hx of CAD, DM. OA. osteoporosis, HTN, HL, hypothyroidism who presents with flu like symptoms with abd pain and nausea. SHe was found to have mild mural thickening vs underdistention of the distal transverse, descending, sigmoid on CT abd w/ IV contrast but no PO contrast Colitis, etiology unknown; r/o infectious enteritis, mass, diverticular disease Abd pain Nausea/Vomiting, improved Viral infection leukocytosis Plan: -recommend continue IV hydration -no acute GI intervention indicated at this time -COlonoscopy as an outpt for eval possible colitis -zofran prn -support care as per primary team -no indication for abx from GI standpoint -no meed for abx D/W Dr. Jaime <Seng Jaime MD - Last Filed: 12/02/17 14:20> Meds - Medications Medications: Current Medications Amlodipine Besylate (Norvasc) 10 mg PO DAILY [facility] Last Admin: 12/02/17 09:09 Dose: 10 mg Calcium/Vitamin D (Oyster Shell Calcium/Vitamin D 500 Mg-200 Iu) 1 tab PO DAILY [facility] Last Admin: 12/02/17 09:09 Dose: 1 tab Cholecalciferol (Vitamin D) 5,000 intlu PO DAILY [facility] Last Admin: 12/02/17 09:11 Dose: 5,000 intlu Enoxaparin Sodium (Lovenox) 40 mg SC DAILY [facility] PRN Reason: Protocol Last Admin: 12/02/17 09:11 Dose: 40 mg Ceftriaxone Sodium 1 gm/ (Sodium Chloride) 100 mls @ 100 mls/hr IVPB DAILY [facility] PRN Reason: Protocol Azithromycin 500 mg/ Sodium (Chloride) 250 mls @ 250 mls/hr IVPB DAILY [facility] PRN Reason: Protocol Levothyroxine Sodium (Synthroid) 75 mcg PO DAILY@0630 [facility] Last Admin: 12/02/17 06:57 Dose: 75 mcg Metformin HCl (Glucophage) 500 mg PO DAILY [facility] Last Admin: 12/02/17 09:10 Dose: 500 mg Montelukast Sodium (Singulair) 10 mg PO DAILY [facility] Last Admin: 12/02/17 09:10 Dose: 10 mg Results - Vital Signs Recent Vital Signs: Last Vital Signs Temp 97.9 F 12/02/17 12:05 Pulse 82 12/02/17 12:05 Resp 18 12/02/17 12:05 BP 155/68 H 12/02/17 12:05 Pulse Ox 97 12/02/17 12:05 - Labs Result Diagrams: 12/02/17 08:50 12/02/17 08:50 Labs: Laboratory Results - last 24 hr 12/01/17 12/01/17 12/01/17 19:40 19:40 20:05 WBC 19.5 H D RBC 4.73 Hgb 13.1 Hct 40.3 MCV 85.2 D MCH 27.8 MCHC 32.6 L RDW 13.0 Plt Count 335 D MPV 7.5 Neut % (Auto) 91.0 H Lymph % (Auto) 5.4 L [place] % (Auto) 3.2 Eos % (Auto) 0.0 Baso % (Auto) 0.4 Neut # (Auto) 17.7 H Lymph # (Auto) 1.1 [place] # (Auto) 0.6 Eos # (Auto) 0.0 Baso # (Auto) 0.1 Neutrophils % (Manual) 85 H Band Neutrophils % 2 Lymphocytes % (Manual) 8 L Monocytes % (Manual) 5 Platelet Estimate Normal Large Platelets Present Hypochromasia (manual) Slight pCO2 pO2 HCO3 ABG pH ABG Total CO2 ABG O2 Saturation ABG Base Excess Vinny Test ABG Potassium VBG pH VBG pCO2 VBG HCO3 VBG Total CO2 VBG O2 Sat (Calc) VBG Base Excess VBG Potassium A-a O2 Difference Glucose Lactate FiO2 Crit Value Called To Crit Value Called By Crit Value Read Back Blood Gas Notified Time Sodium 138 Potassium 3.5 L Chloride 99 Carbon Dioxide 25 Anion Gap 18 BUN 16 Creatinine 0.7 Est GFR ( Amer) > 60 Est GFR (Non-Af Amer) > 60 POC Glucose (mg/dL) Random Glucose 156 H Calcium 9.0 Troponin I 0.0130 Triglycerides Cholesterol LDL Cholesterol Direct HDL Cholesterol Vitamin B12 Thyroxine (T4) Total T3 TSH 3rd Generation 1.26 Arterial Blood Potassium Venous Blood Potassium Influenza Typ A,B (EIA) Negative for flu a/b 12/01/17 12/01/17 12/01/17 21:04 23:15 23:27 WBC RBC Hgb Hct MCV MCH MCHC RDW Plt Count MPV Neut % (Auto) Lymph % (Auto) [place] % (Auto) Eos % (Auto) Baso % (Auto) Neut # (Auto) Lymph # (Auto) [place] # (Auto) Eos # (Auto) Baso # (Auto) Neutrophils % (Manual) Band Neutrophils % Lymphocytes % (Manual) Monocytes % (Manual) Platelet Estimate Large Platelets Hypochromasia (manual) pCO2 36 pO2 40 78 H 92 HCO3 23.8 ABG pH 7.41 ABG Total CO2 23.9 ABG O2 Saturation 100.5 H ABG Base Excess -1.4 Vinny Test Yes ABG Potassium 3.0 L VBG pH 7.41 6.92 L* VBG pCO2 41 82 H* VBG HCO3 25.3 11.3 VBG Total CO2 27.3 19.3 L VBG O2 Sat (Calc) 82.8 H 94.8 H VBG Base Excess 1.2 -17.0 L VBG Potassium 3.5 L A-a O2 Difference 13.0 Glucose 153 H 127 H 129 H Lactate 1.7 1.3 0.7 FiO2 21.0 21.0 21.0 Crit Value Called To Jose Angel smalls rn Crit Value Called By 333 Crit Value Read Back Y Blood Gas Notified Time 2323 Sodium 136.0 114.0 L* 137.0 Potassium Chloride 99.0 98.0 107.0 Carbon Dioxide Anion Gap BUN Creatinine Est GFR ( Amer) Est GFR (Non-Af Amer) POC Glucose (mg/dL) Random Glucose Calcium Troponin I Triglycerides Cholesterol LDL Cholesterol Direct HDL Cholesterol Vitamin B12 Thyroxine (T4) Total T3 TSH 3rd Generation Arterial Blood Potassium 3.0 L Venous Blood Potassium 3.5 L Influenza Typ A,B (EIA) 12/02/17 12/02/17 12/02/17 05:51 08:50 08:50 WBC 14.0 H RBC 4.54 Hgb 12.9 Hct 38.6 MCV 85.1 MCH 28.4 MCHC 33.4 RDW 13.0 Plt Count 327 MPV Neut % (Auto) Lymph % (Auto) [place] % (Auto) Eos % (Auto) Baso % (Auto) Neut # (Auto) Lymph # (Auto) [place] # (Auto) Eos # (Auto) Baso # (Auto) Neutrophils % (Manual) Band Neutrophils % Lymphocytes % (Manual) Monocytes % (Manual) Platelet Estimate Large Platelets Hypochromasia (manual) pCO2 pO2 HCO3 ABG pH ABG Total CO2 ABG O2 Saturation ABG Base Excess Vinny Test ABG Potassium VBG pH VBG pCO2 VBG HCO3 VBG Total CO2 VBG O2 Sat (Calc) VBG Base Excess VBG Potassium A-a O2 Difference Glucose Lactate FiO2 Crit Value Called To Crit Value Called By Crit Value Read Back Blood Gas Notified Time Sodium 147 Potassium 3.9 Chloride 107 Carbon Dioxide 29 Anion Gap 15 BUN 13 Creatinine 0.7 Est GFR ( Amer) > 60 Est GFR (Non-Af Amer) > 60 POC Glucose (mg/dL) 95 Random Glucose 111 H Calcium 8.7 Troponin I Triglycerides Cholesterol LDL Cholesterol Direct HDL Cholesterol Vitamin B12 Thyroxine (T4) Total T3 TSH 3rd Generation Arterial Blood Potassium Venous Blood Potassium Influenza Typ A,B (EIA) 12/02/17 12/02/17 12/02/17 09:30 09:30 10:58 WBC RBC Hgb Hct MCV MCH MCHC RDW Plt Count MPV Neut % (Auto) Lymph % (Auto) [place] % (Auto) Eos % (Auto) Baso % (Auto) Neut # (Auto) Lymph # (Auto) [place] # (Auto) Eos # (Auto) Baso # (Auto) Neutrophils % (Manual) Band Neutrophils % Lymphocytes % (Manual) Monocytes % (Manual) Platelet Estimate Large Platelets Hypochromasia (manual) pCO2 pO2 HCO3 ABG pH ABG Total CO2 ABG O2 Saturation ABG Base Excess Vinny Test ABG Potassium VBG pH VBG pCO2 VBG HCO3 VBG Total CO2 VBG O2 Sat (Calc) VBG Base Excess VBG Potassium A-a O2 Difference Glucose Lactate FiO2 Crit Value Called To Crit Value Called By Crit Value Read Back Blood Gas Notified Time Sodium Potassium Chloride Carbon Dioxide Anion Gap BUN Creatinine Est GFR ( Amer) Est GFR (Non-Af Amer) POC Glucose (mg/dL) 151 H Random Glucose Calcium Troponin I Triglycerides 133 Cholesterol 199 LDL Cholesterol Direct 135 H HDL Cholesterol 40 Vitamin B12 407 Thyroxine (T4) 11.6 H Total T3 0.806 L TSH 3rd Generation 2.49 Arterial Blood Potassium Venous Blood Potassium Influenza Typ A,B (EIA) Attending/Attestation - Attestation I have personally seen and examined this patient.: Yes I have fully participated in the care of the patient.: Yes I have reviewed all pertinent clinical information: Yes Notes (Text): 12/02/17 14:16 This is a 77 yr old F w/ hx of CAD, DM, OA, osteoporosis, HTN, HL, hypothyroidism who presents with flu like symptoms with abdominal pain and nausea. She was found to have mild mural thickening vs underdistention of the distal transverse, descending, sigmoid on CT abdomen with IV contrast but no PO contrast. She denies diarrhea, abdominal pain or rectal bleeding. Her symptoms have resolved and she is getting treated for UTI. No antibiotics are clinically indicated. She will benefit from outpatient colonoscopy. Supportive care. No acute GI intervention or work up necessary. Diet as tolerated. Thank you for letting us participate in the care of your patient
[2017-12-02 09:28] LABS: BLOOD UREA NITROGEN 13 mg/dl (7-17); CALCIUM 8.7 mg/dL (8.4-10.2); GFR AFRICAN-AMERICAN > 60; GFR NON-AFRICAN AMERICAN > 60
[2017-12-02 10:14] LABS: T4 11.6 ug/dl (5.5-11.0)
[2017-12-02 10:28] LABS: T3 0.806 nmol/L (1.49-2.60)
--- NOTE | 2017-12-02 11:14 | RAD ---
HISTORY: fever COMPARISON: Correlation made with concurrent CT scan abdomen pelvis which image both lung bases. FINDINGS: LUNGS: No focal consolidation.Re- demonstrated is a small calcified granuloma right lateral lower lobe abutting the pleural surface seen to much better advantage on CT scan PLEURA: No significant pleural effusion identified, no pneumothorax apparent. CARDIOVASCULAR: Normal. OSSEOUS STRUCTURES: No significant abnormalities. VISUALIZED UPPER ABDOMEN: Normal. OTHER FINDINGS: None. IMPRESSION: No focal consolidation. Re- demonstrated is a small calcified granuloma right lateral lower lobe abutting the pleural surface seen to much better advantage on CT scan
--- NOTE | 2017-12-02 11:20 | CARD ---
APPROVED REPORT EKG Measurement Heart [id number] ID [id number] <Conclusion> Normal sinus rhythm Nonspecific ST and T wave abnormality Abnormal ECG
--- NOTE | 2017-12-02 19:06 | CT ---
PROCEDURE: CT Chest without contrast HISTORY: f/u cxray granuloma;fever leukocytosis COMPARISON: December 02, 2017. Chest x-ray. TECHNIQUE: Contiguous axial images were obtained through the chest without intravenous contrast enhancement. Sagittal and coronal reconstructions were performed. Radiation dose (DLP): 320.18 mGy-cm. This CT exam was performed using one or more of the following dose reduction techniques: Automated exposure control, adjustment of the mA and/or kV according to patient size, and/or use of iterative reconstruction technique. FINDINGS: LUNGS: No suspicious pulmonary nodules, masses, infiltrates. Calcified granuloma again identified in the right lower lobe. Hyperinflation, manifestations COPD. MEDIASTINUM: Unremarkable thoracic aorta. No aneurysm. Normal sized heart. Main pulmonary artery unremarkable. No vascular congestion. No lymphadenopathy. PLEURA: No pleural fluid. No pneumothorax. BONES: No fracture. No destructive lesion. UPPER ABDOMEN: Incompletely visualized hepatic and renal cysts. OTHER FINDINGS: None. IMPRESSION: No significant or acute findings to account for/ related to the clinical presentation. Additional benign and/or incidental findings described above.
[2017-12-03 00:53] LABS: SQUAMOUS EPITHIAL < 1 /hpf (0-5); URINE BILIRUBIN NEGATIVE (NEGATIVE); URINE BLOOD NEGATIVE (NEGATIVE); URINE CLARITY CLEAR (Clear); URINE COLOR YELLOW (YELLOW); URINE GLUCOSE (UA) NEG (Normal); URINE LEUKOCYTE ESTERASE NEG Leu/uL (Negative); URINE NITRATE NEGATIVE (NEGATIVE); URINE PROTEIN NEGATIVE (NEGATIVE); URINE UROBILINOGEN 0.2-1.0 mg/dL (0.2-1.0)
[2017-12-03] MEDS: Levothyroxine 75 MCG TAB PO SCH (06:37)
[2017-12-03 07:01] LABS: MEAN CELL VOLUME 84.1 fl (81.0-99.0); MEAN CORPUSCULAR HEMOGLOBIN 28.4 pg (27.0-31.0); MEAN CORPUSCULAR HGB CONC 33.8 g/dL (33.0-37.0); RBC 4.58 Mil/uL (3.80-5.20); WHITE BLOOD COUNT 12.6 K/uL (4.8-10.8)
[2017-12-03 07:18] LABS: BLOOD UREA NITROGEN 12 mg/dl (7-17); CALCIUM 8.8 mg/dL (8.4-10.2); GFR AFRICAN-AMERICAN > 60; GFR NON-AFRICAN AMERICAN > 60
--- NOTE | 2017-12-03 08:46 | PN ---
DATE: 12/03/2017 SUBJECTIVE: The patient is seen and examined. Interim events noted. The patient is in regular medical floor. He is feeling much better. No chest pain or shortness of breath. No abdominal pain. No diarrhea, vomiting or constipation. PHYSICAL EXAMINATION. GENERAL: The patient is in no acute distress. HEART: S1 and S2, normal and regular. LUNGS: Good bilateral air exchange. ABDOMEN: Soft and nontender. No organomegaly. No fluid. Bowel sounds are plus and normal. No sign of acute abdomen. No guarding, no rigidity, no rebound. EXTREMITIES: No edema. No calf swelling. No tenderness. No acute ischemia. 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 DIAGNOSTIC DATA: Available diagnostic data reviewed. The patient is clinically stable and improving. Plan as ordered. Cleve Carranza MD
[2017-12-03] MEDS: Enoxaparin 40 mg Syringe SC SCH (08:48)
[2017-12-03] MEDS: Calcium-Vit D 500 mg-200 Units Tab UD PO SCH (08:48)
[2017-12-03] MEDS: Cholecalciferol 1,000 INTLU TAB PO SCH (08:49)
[2017-12-03] MEDS: Azithromycin 500 MG in Sodium Chloride 0.9% 250 ML IVPB SCH (08:49)
[2017-12-03] MEDS ORDERED: Potassium Chloride 20 mEq ER Tab PO ONE (10:59)
[2017-12-04] MEDS: Levothyroxine 75 MCG TAB PO SCH (06:01)
[2017-12-04 07:07] LABS: HEMOGLOBIN 13.4 g/dL (12.0-16.0); MEAN CELL VOLUME 84.9 fl (81.0-99.0); MEAN CORPUSCULAR HEMOGLOBIN 28.3 pg (27.0-31.0); MEAN CORPUSCULAR HGB CONC 33.3 g/dL (33.0-37.0); RBC 4.75 Mil/uL (3.80-5.20); RED CELL DISTRIBUTION WIDTH 12.8 % (11.5-14.5)
[2017-12-04 07:21] LABS: ALB/GLOB RATIO 1.1 (1.0-2.1); ALT/SGPT 25 U/L (9-52); AST/SGOT 26 U/L (14-36); BLOOD UREA NITROGEN 14 mg/dl (7-17); CALCIUM 8.9 mg/dL (8.4-10.2); GFR AFRICAN-AMERICAN > 60; GFR NON-AFRICAN AMERICAN > 60
[2017-12-04] MEDS: Enoxaparin 40 mg Syringe SC SCH (09:08)
[2017-12-04] MEDS: Calcium-Vit D 500 mg-200 Units Tab UD PO SCH (09:09)
[2017-12-04] MEDS: cefTRIAXone IV 1 gm in Dextros 50 ML IVPB SCH (09:09)
[2017-12-04] MEDS: Cholecalciferol 1,000 INTLU TAB PO SCH (09:10)
[2017-12-04] MEDS: Azithromycin 500 MG in Sodium Chloride 0.9% 250 ML IVPB SCH (09:11)
--- NOTE | 2017-12-04 10:56 | PN ---
DATE: 12/04/2017 SUBJECTIVE: The patient seen and examined. Interim events noted. The patient remains in regular medical floor. She feels much better. No abdominal pain. No cough. No chest pain. No shortness of breath. PHYSICAL EXAMINATION: GENERAL: The patient is in no acute distress. VITAL SIGNS: Stable. HEART: S1 and S2, normal and regular. LUNGS: Good bilateral air exchange. ABDOMEN: Soft and nontender. EXTREMITIES: No edema. No calf swelling. No tenderness. No acute ischemia. CENTRAL NERVOUS SYSTEM: Exam is essentially unchanged. DIAGNOSTIC DATA: Available diagnostic data reviewed. IMPRESSION AND PLAN: Nursing staff did not report any specific issue. The patient is looking well. Tolerating diet very well and passes urine and stool without any problem. Overall, the patient is clinically improved. Plan as ordered. Cleve Carranza MD
[2017-12-05] MEDS: Levothyroxine 75 MCG TAB PO SCH (05:51)
[2017-12-05 06:49] LABS: HEMOGLOBIN 13.6 g/dL (12.0-16.0); MEAN CELL VOLUME 84.9 fl (81.0-99.0); MEAN CORPUSCULAR HEMOGLOBIN 28.1 pg (27.0-31.0); MEAN CORPUSCULAR HGB CONC 33.1 g/dL (33.0-37.0); RBC 4.84 Mil/uL (3.80-5.20); RED CELL DISTRIBUTION WIDTH 12.7 % (11.5-14.5); WHITE BLOOD COUNT 8.4 K/uL (4.8-10.8)
[2017-12-05 07:03] LABS: ALB/GLOB RATIO 1.2 (1.0-2.1); ALBUMIN 4.1 g/dL (3.5-5.0); ALT/SGPT 30 U/L (9-52); AST/SGOT 23 U/L (14-36); BLOOD UREA NITROGEN 15 mg/dl (7-17); CALCIUM 9.4 mg/dL (8.4-10.2); GFR AFRICAN-AMERICAN > 60; GFR NON-AFRICAN AMERICAN > 60
[2017-12-05 08:41] VITALS: BP 151/74; PULSE 76; RESP 18; TEMP 98.1; O2SAT 93
[2017-12-05] MEDS: Calcium-Vit D 500 mg-200 Units Tab UD PO SCH (10:27)
[2017-12-05] MEDS: Enoxaparin 40 mg Syringe SC SCH (10:27)
[2017-12-05] MEDS: Azithromycin 500 MG in Sodium Chloride 0.9% 250 ML IVPB SCH (10:28)
[2017-12-05] MEDS: cefTRIAXone IV 1 gm in Dextros 50 ML IVPB SCH (10:28)
[2017-12-05] MEDS: Cholecalciferol 1,000 INTLU TAB PO SCH (10:29)
--- NOTE | 2017-12-05 14:00 | PN ---
DATE: 12/05/2017 SUBJECTIVE: The patient is seen and examined. Interim events noted. The patient remains on regular medical floor, feels much better. No chest pain, no shortness of breath. No abdominal pain. No vomiting. No diarrhea. Moving bowels and bladder very well. Eating without any discomfort, doing her ADLs now. PHYSICAL EXAMINATION: GENERAL: The patient is in no acute distress. VITAL SIGNS: Stable. HEART: S1, S2, normal regular. LUNGS: Good bilateral air exchange. ABDOMEN: Soft, nontender. EXTREMITIES: No edema. No calf swelling. No tenderness. No acute ischemia. CENTRAL NERVOUS SYSTEM: Essentially unchanged. DIAGNOSTIC DATA: Available diagnostic data reviewed. ASSESSMENT AND PLAN: Overall, the patient's general medical condition is stable. We will discharge the patient home today. The patient will be followed up by primary care physician. Case and plan was discussed with the patient which she understood. Cleve Carranza MD
--- NOTE | 2017-12-05 14:07 | PQF GENQUE ---
This form is a permanent part of the medical record 12/05/17 Dr. Carranza, Documentation of possible Pneumonia. Please clarify if Pneumonia is ruled in or ruled out. If ruled in please clarify the type of pneumonia. Note: CAP, HAP, and HCAP indicate where the pneumonia was acquired, not a specific type. Patient presents with abdominal pain, dizziness, headache, subjective fever, vomiting. CXR: No focal consolidation. CT Abdomen: Mild colitis vs underdistention. + fever, WBC 19.5 with a L shift. Treated with Rocephin and Zithromax. Clarification of your documentation is requested to better reflect the severity of illness and intensity of treatment of your patient. Indicators present [] Specify: [] [] Specify: [] [] Specify: [] [] Specify: [] Location in the medical record that reflects the above clinical findings: [] Treatment Provided: [] PHYSICIAN'S RESPONSE TYPE OF PNEUMONIA: Aspiration pneumonia Bacterial (specify organism) Bronchopneumonia (specify organism) Interstitial pneumonia Organizing pneumonia/BOOP Pneumonia with influenza, magali flu, or H1N1 flu RSV pneumonia Tuberculosis, pulmonary Viral pneumonia Other pneumonia (specify organism or type) Clinically unable to determine Unknown Based on your medical judgment of the clinical indicators outlined above please clarify the following: [] Practitioner response [] If unable to determine, please check the box, sign and date. Present On Admission (POA) Indicator: [] Present at the time of admission [] Not present at the time of admission [] Clinically Undetermined In responding to this query, please exercise your independent professional judgment. The fact that a question is asked does not imply that any particular answer is desired or expected. Thank you for your clarification on this documentation. If you have any questions please call:ext [phone] * Thank you, Jasmin Grace RN CDMP MTDD
== END 2017-12-05 14:33 | disposition home or self-care (01) | DRG 872 ==
LOC: H.ER 17:59 → H.ERHOLD 21:51 → H.TEL 12-02 00:15 → H.MEDSURG1 12-02 22:20
PROVIDERS: ADMIT Internal Medicine; ATTEND Internal Medicine
DX: A41.9 Sepsis, unspecified organism (principal); E11.9 Type 2 diabetes mellitus without complications; N39.0 Urinary tract infection, site not specified; B34.9 Viral infection, unspecified; K52.9 Noninfective gastroenteritis and colitis, unspecified; I25.10 Atherosclerotic heart disease of native coronary artery without angina pectoris; E03.9 Hypothyroidism, unspecified; M81.0 Age-related osteoporosis without current pathological fracture; E78.00 Pure hypercholesterolemia, unspecified; I10 Essential (primary) hypertension; M19.90 Unspecified osteoarthritis, unspecified site; J45.909 Unspecified asthma, uncomplicated; E78.5 Hyperlipidemia, unspecified; K57.90 Diverticulosis of intestine, part unspecified, without perforation or abscess without bleeding

== ENCOUNTER 2018-01-28 11:38 | Emergency (ER) | payer MEDICARE, OTHER ==
[2018-01-28 12:08] VITALS: TEMP 97.8
--- NOTE | 2018-01-28 13:32 | ED PDOC ---
HPI: Eye Injury/Pain Time Seen by Provider: 01/28/18 13:29 Chief Complaint (Nursing): Eye Problem Chief Complaint (Provider): eye discomfort History Per: Patient (77 y/o h/o DM/HTN here with right eye discomfort x 3 days. Notes watery discharge/itchy eye. Has also noted pain mild in right facial region. Has h/o catarract sx in left eye 8 years ago. ) Past Medical History Reviewed: Historical Data, Nursing Documentation, Vital Signs Vital Signs: Last Vital Signs Temp 97.8 F 01/28/18 11:51 Pulse 84 01/28/18 11:51 Resp 18 01/28/18 11:51 BP 193/86 H 01/28/18 11:51 Pulse Ox 98 01/28/18 11:51 - Medical History PMH: Arthritis, Asthma, CAD, HTN, Hypercholesterolemia, Hypothyroidism, Osteoporosis Denies: HIV - Surgical History Surgical History: Cholecystectomy - Family History Family History: States: Unknown Family Hx - Home Medications Home Medications: Ambulatory Orders Medication Instructions Recorded Calcium Carbonate/Vitamin D3 1 tab PO DAILY 12/01/17 [Calcium 600 + Vit D Tablet] Cholecalciferol (Vitamin D3) 5,000 units PO DAILY 12/01/17 [Vitamin D3] Levothyroxine [Synthroid] 75 mcg PO QAM 12/01/17 Metformin HCl [Glucophage] 500 mg PO DAILY 12/01/17 Montelukast Sodium [Singulair] 10 mg PO DAILY 12/01/17 amLODIPine [Norvasc] 10 mg PO DAILY 12/01/17 Azithromycin [Zithromax] 500 mg PO DAILY #3 tablet 12/05/17 Amoxicillin/Clavulanate [Augmentin 1 tab PO BID #14 tab 01/28/18 875 MG-125 MG] Polymyxin/Trimethoprim Sulfate 1 drop OD QID #1 bottle 01/28/18 [Polytrim Ophth Soln] - Allergies Allergies/Adverse Reactions: Allergies Allergy/AdvReac Type Severity Reaction Status Date / Time No Known Allergies Allergy Verified 12/01/17 23:09 Review of Systems ROS Statement: Except As Marked, All Systems Reviewed And Found Negative ENT: Positive for: Ear Pain, Ear Discharge Physical Exam - Reviewed Nursing Documentation Reviewed: Yes Vital Signs Reviewed: Yes (left eye 20/20 right eye 20/30) - Physical Exam Appears: Positive for: Well, Non-toxic, No Acute Distress Head Exam: Positive for: ATRAUMATIC, NORMAL INSPECTION, NORMOCEPHALIC Skin: Positive for: Normal Color, Warm, DRY Eye Exam: Positive for: EOMI, PERRL, Periorbital swelling (mild swelling left facial region/no induration/ no erythema), Conjunctival injection, Other (mild subconjunctival hemorrhage noted. Pupils reactive to light bilaterally. No fluorescein uptake noted.). Negative for: Normal appearance ([facility] notes left eye 20; right eye 22 ) ENT: Positive for: Normal ENT Inspection Neck: Positive for: Normal, Painless ROM Cardiovascular/Chest: Positive for: Regular Rate, Rhythm Respiratory: Positive for: CNT, Normal Breath Sounds Gastrointestinal/Abdominal: Positive for: Normal Exam, Bowel Sounds, Soft Back: Positive for: Normal Inspection Extremity: Positive for: Normal ROM Neurologic/Psych: Positive for: Alert, Oriented - ECG O2 Sat by Pulse Oximetry: 98 Disposition - Clinical Impression Clinical Impression: Red eye - Patient ED Disposition Is Patient to be Admitted: No - Disposition Referrals: Stanley Mares MD [Staff Provider] - Disposition: Routine/Home Disposition Time: 13:43 Condition: FAIR Prescriptions: Amoxicillin/Clavulanate [Augmentin 875 MG-125 MG] 1 tab PO BID #14 tab Polymyxin/Trimethoprim Sulfate [Polytrim Ophth Soln] 1 drop OD QID #1 bottle Instructions: Conjunctivitis (Pinkeye)
[2018-01-28 14:27] VITALS: BP 145/80; PULSE 75; RESP 16; O2SAT 99
== END 2018-01-28 14:22 | disposition home or self-care (01) ==
LOC: H.ER 11:38
DX: H57.8 Other specified disorders of eye and adnexa (principal)

== ENCOUNTER 2018-08-02 07:42 | Emergency (ER) | payer OTHER ==
--- NOTE | 2018-08-02 08:53 | ED PDOC ---
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 Patient denies any fall or injury. Patient also denies vomiting, chest pain, or shortness of breath. PMD: Dr. Jeff Nichols Past Medical History Reviewed: Historical Data, Nursing Documentation, Vital Signs Vital Signs: Last Vital Signs Temp 97 F L 08/02/18 07:48 Pulse 70 08/02/18 07:48 Resp 18 08/02/18 07:48 BP 128/73 08/02/18 07:48 Pulse Ox 98 08/02/18 07:48 - Medical History PMH: Arthritis, Asthma, CAD, HTN, Hypercholesterolemia, Hypothyroidism, Osteop orosis Denies: HIV - Surgical History Surgical History: Cholecystectomy - Family History Family History: States: Unknown Family Hx - Social History Current smoker - smoking cessation education provided: No Alcohol: None Drugs: Denies - Home Medications Home Medications: Ambulatory Orders Medication Instructions Recorded Calcium Carbonate/Vitamin D3 1 tab PO DAILY 12/01/17 [Calcium 600 + Vit D Tablet] Cholecalciferol (Vitamin D3) 5,000 units PO DAILY 12/01/17 [Vitamin D3] Levothyroxine [Synthroid] 75 mcg PO QAM 12/01/17 Metformin HCl [Glucophage] 500 mg PO DAILY 12/01/17 Montelukast Sodium [Singulair] 10 mg PO DAILY 12/01/17 amLODIPine [Norvasc] 10 mg PO DAILY 12/01/17 Azithromycin [Zithromax] 500 mg PO DAILY #3 tablet 12/05/17 Amoxicillin/Clavulanate [Augmentin 1 tab PO BID #14 tab 01/28/18 875 MG-125 MG] Polymyxin/Trimethoprim Sulfate 1 drop OD QID #1 bottle 01/28/18 [Polytrim Ophth Soln] - Allergies Allergies/Adverse Reactions: Allergies Allergy/AdvReac Type Severity Reaction Status Date / Time No Known Allergies Allergy Verified 08/02/18 07:47 Review of Systems ROS Statement: Except As Marked, All Systems Reviewed And Found Negative Cardiovascular: Negative for: Chest Pain Respiratory: Negative for: Shortness of Breath Gastrointestinal: Negative for: Vomiting Musculoskeletal: Positive for: Other (Head pain lower back right) Physical Exam - Reviewed Nursing Documentation Reviewed: Yes Vital Signs Reviewed: Yes - Physical Exam Appears: Positive for: Non-toxic, No Acute Distress Head Exam: Positive for: ATRAUMATIC, NORMOCEPHALIC Skin: Positive for: Normal Color, Warm, DRY Eye Exam: Positive for: EOMI, Normal appearance, PERRL ENT: Positive for: Normal ENT Inspection Cardiovascular/Chest: Positive for: Regular Rate, Rhythm. Negative for: Murmur Respiratory: Positive for: Normal Breath Sounds. Negative for: Respiratory Distress Gastrointestinal/Abdominal: Positive for: Normal Exam, Soft. Negative for: Tenderness Back: Positive for: Vertebral Tenderness (Right paraspinal region mild tenderness) Extremity: Positive for: Normal ROM. Negative for: Pedal Edema, Deformity Neurologic/Psych: Positive for: Alert, Oriented. Negative for: Motor/Sensory Deficits - ECG O2 Sat by Pulse Oximetry: 98 (RA) Pulse Ox Interpretation: Normal Medical Decision Making Medical Decision Making: Time: 07:59 Initial Impression: Atraumatic head pain Initial Plan: --CT C Spine w/o contrast --CT Head w/o contrast Time: 09:03 CT head FINDINGS: HEMORRHAGE: No intracranial hemorrhage. BRAIN: No mass effect or edema. There is generalized cerebral atrophy and likely bilateral chronic microvascular ischemic changes accentuated around each ventricle right side greater than left.. Nonspecific incidentally noted are bilateral basal ganglion calcifications. VENTRICLES: Unremarkable. No hydrocephalus. CALVARIUM: Unremarkable. PARANASAL SINUSES: Unremarkable as visualized. No significant inflammatory changes. MASTOID AIR CELLS: Unremarkable as visualized. No inflammatory changes. OTHER FINDINGS: None. IMPRESSION: No intracranial hemorrhage or mass effect. No calvarial fracture Generalized cerebral atrophy with periventricular/deep white matter changes compatible with microvascular ischemic changes. Time: 931 CT Spine FINDINGS: VERTEBRAE: No fracture. Minimal stepladder like malalignment C4-5 and C7-T1 (series 605, image 67) compatible with degenerative ligamentous laxity. No fracture appreciated. No destructive bony lesion. Uncovertebral and endplate spondylosis and apophyseal joint hypertrophy changes are noted these minimally in approach on each proximal foramina at the C4-5 and C5-6 level. DISCS/SPINAL CANAL/NEURAL FORAMINA: No significant central canal or neural foraminal stenosis. Milder degrees of encroachment as above are noted. Discs heights are narrowed at C4-5 C5-6 and C6-7. PARASPINAL SOFT TISSUES: Unremarkable. OTHER FINDINGS: Nonspecific areas of mild uneven attenuation at each lung apex-no discrete nodule seen. No mass appreciated. Atherosclerotic vascular calcifications present. IMPRESSION: No fracture. Degenerative changes as above Time: 1133 RAD - Right Shoulder FINDINGS: BONES: No fracture appreciated JOINTS: Advanced. Glenohumeral and acromioclavicular osteoarthritis. Superimposed right rotator cuff calcific tendinopathy and/or faint calcific bursitis also suspect. Additional degenerative ossific debris/loose bodies subjacent to the right coracoid process in the right sub coracoid bursa also suspect. SOFT TISSUES: Normal. OTHER FINDINGS: 3 mm hyperdense nodule lateral right lung benign-appearing on a CT chest without contrast study from 12/02/2017 IMPRESSION: No fracture or lytic lesion. Advanced arthropathic changes as above. Calcified right lung peripheral granuloma benign-appearing as above Time: 11:50 Upon provider reevaluation patient is feeling better, is medically stable, and requires no further treatment in the ED at this time. Patient will be discharged home. Counseling was provided and all questions were answered regarding diagnosis and need for follow up with PMD. There is agreement to discharge plan. Return if symptoms persist or worsen. Scribe Attestation: Documented by Abdelrahman Lee acting as a scribe for Pradeep Ruff MD Provider Scribe Attestation: All medical record entries made by the Scribe were at my direction and personally dictated by me. I have reviewed the chart and agree that the record accurately reflects my personal performance of the history, physical exam, medical decision making, and the department course for this patient. I have also personally directed, reviewed, and agree with the discharge instructions and disposition. Disposition - Clinical Impression Clinical Impression: Neck pain - Patient ED Disposition Is Patient to be Admitted: No - Disposition Disposition: Routine/Home Disposition Time: 11:50 Condition: IMPROVED Additional Instructions: follow up with your primary doctor in 1-2 day for reevaluation return to the ED with any worsening or concerning symptoms Instructions: Generalized Neck Pain (DC) Forms: [facility] (Czech) Print Language: GEORGIAN
--- NOTE | 2018-08-02 09:04 | CT ---
Date of service: 08/02/2018 PROCEDURE: CT HEAD WITHOUT CONTRAST. HISTORY: fall COMPARISON: None available. TECHNIQUE: Axial computed tomography images were obtained through the head/brain without intravenous contrast. Radiation dose: Total exam DLP = 773 mGy-cm. This CT exam was performed using one or more of the following dose reduction techniques: Automated exposure control, adjustment of the mA and/or kV according to patient size, and/or use of iterative reconstruction technique. FINDINGS: HEMORRHAGE: No intracranial hemorrhage. BRAIN: No mass effect or edema. There is generalized cerebral atrophy and likely bilateral chronic microvascular ischemic changes accentuated around each ventricle right side greater than left.. Nonspecific incidentally noted are bilateral basal ganglion calcifications. VENTRICLES: Unremarkable. No hydrocephalus. CALVARIUM: Unremarkable. PARANASAL SINUSES: Unremarkable as visualized. No significant inflammatory changes. MASTOID AIR CELLS: Unremarkable as visualized. No inflammatory changes. OTHER FINDINGS: None. IMPRESSION: No intracranial hemorrhage or mass effect. No calvarial fracture Generalized cerebral atrophy with periventricular/deep white matter changes compatible with microvascular ischemic changes.
--- NOTE | 2018-08-02 09:32 | CT ---
Date of service: 08/02/2018 PROCEDURE: CT Cervical Spine without contrast HISTORY: fall COMPARISON: None available. TECHNIQUE: Axial computed tomography images were obtained of the cervical spine without the use of intravenous contrast. Coronal and sagittal reformatted images were created and reviewed. Radiation dose: Total exam DLP = 320 mGy-cm. This CT exam was performed using one or more of the following dose reduction techniques: Automated exposure control, adjustment of the mA and/or kV according to patient size, and/or use of iterative reconstruction technique. FINDINGS: VERTEBRAE: No fracture. Minimal stepladder like malalignment C4-5 and C7-T1 (series 605, image 67) compatible with degenerative ligamentous laxity. No fracture appreciated. No destructive bony lesion. Uncovertebral and endplate spondylosis and apophyseal joint hypertrophy changes are noted these minimally in approach on each proximal foramina at the C4-5 and C5-6 level. DISCS/SPINAL CANAL/NEURAL FORAMINA: No significant central canal or neural foraminal stenosis. Milder degrees of encroachment as above are noted. Discs heights are narrowed at C4-5 C5-6 and C6-7. PARASPINAL SOFT TISSUES: Unremarkable. OTHER FINDINGS: Nonspecific areas of mild uneven attenuation at each lung apex-no discrete nodule seen. No mass appreciated. Atherosclerotic vascular calcifications present. IMPRESSION: No fracture. Degenerative changes as above
--- NOTE | 2018-08-02 11:35 | RAD ---
Date of service: 08/02/2018 PROCEDURE: Radiographs of the Right Shoulder HISTORY: atraumatic pain COMPARISON: None FINDINGS: BONES: No fracture appreciated JOINTS: Advanced. Glenohumeral and acromioclavicular osteoarthritis. Superimposed right rotator cuff calcific tendinopathy and/or faint calcific bursitis also suspect. Additional degenerative ossific debris/loose bodies subjacent to the right coracoid process in the right sub coracoid bursa also suspect. SOFT TISSUES: Normal. OTHER FINDINGS: 3 mm hyperdense nodule lateral right lung benign-appearing on a CT chest without contrast study from 12/02/2017 IMPRESSION: No fracture or lytic lesion. Advanced arthropathic changes as above. Calcified right lung peripheral granuloma benign-appearing as above
[2018-08-02 12:37] VITALS: BP 148/80; PULSE 65; RESP 16; TEMP 98.4; O2SAT 97
== END 2018-08-02 12:36 | disposition home or self-care (01) ==
LOC: H.ER 07:42
DX: M54.2 Cervicalgia (principal); R51 Headache; M25.511 Pain in right shoulder